=== PATIENT | male | born 1945 | race American Indian/Alaskan Native ===

== ENCOUNTER 2018-03-19 07:47 | Inpatient (IN) | payer MEDICARE ==
[2017-12-04 08:46] VITALS: BMI 23.7
[2018-03-19] MEDS ORDERED: cefTRIAXone IV 1 gm in Dextros 50 ML IVPB ONE (10:55)
[2018-03-19] MEDS ORDERED: Propofol 10 mg/ml Inj (20 ML) ONE (11:04)
[2018-03-19] MEDS ORDERED: Oxycodone/Acetaminophen 5/325 mg Tab PO PRN (12:15)
--- NOTE | 2018-03-19 12:20 | PCM.SURG1 ---
Surgeon's Initial Post Op Note - Surgeon's Notes Surgeon: Belen Stephens Steel Pourer Helper: none Type of Anesthesia: General LMA Pre-Operative Diagnosis: Urinary retention. Prostate cancer Operative Findings: same, bladder calculi Post-Operative Diagnosis: same Operation Performed: cysto, cystolithotripsy,. TURP Specimen/Specimens Removed: stones, prostate Estimated Blood Loss: EBL {In ML}: 100 Blood Products Given: N/A Post-Op Condition: Good Date of Surgery/Procedure: 03/19/18 Time of Surgery/Procedure: 12:10
[2018-03-19] MEDS: HYDROmorphone 0.5 mg/0.5 ml ISec IVP PRN ×3 (12:30→13:05)
[2018-03-19] MEDS ORDERED: HYDROmorphone 0.5 mg/0.5 ml ISec ONE (12:30)
--- NOTE | 2018-03-19 14:29 | CP.PCM.HP ---
History of Present Illness - History of Present Illness History of Present Illness: H&P note for Hospitalist Service. HPI: This is a 73 year old male with PMHx of HTN, severe R hip arthritis, urinary retention, prostate cancer, and DVT R leg (7 years ago). Patient was admitted for monitoring s/p bleeding during same day surgery TURP procedure with Dr. Belen Stephens. The procedure was only partially completed due to concern of blood loss, estimated at 100mL. Of note, patient is Sikh and cannot receive any blood products. Several hours after surgery/ general anesthesia, patient was nauseous and vomited x1, non-bloody. He also states he is slightly tired and feels cold. Denies chest pain, shortness of breath, fever, abdominal pain, dizziness, lightheadedness and any other symptoms. Patient denies hx of coagulopathy, easy bruising, or current use of blood thinners. PMHx: HTN, severe R hip arthritis, urinary retention, prostate cancer, and DVT R leg (7 years ago) PSHx: colon surgery 09/2017 Meds: amlodipine 5mg daily, losartan 100mg daily, tamsulosin 0.4mg BID, Finasteride 5mg daily Allergies: NKDA Family Hx: Mother-cancer; father-Alzeihmer's and CVA Social: Denies tobacco, alcohol and illicit drugs. lives at home with . 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 PMD: Dr. Valencia, : Dr. Belen Stephens Proxy: Bhumika Jin, . H: [phone], C: [phone] NOTE: NO BLOOD PRODUCTS Present on Admission - Present on Admission Any Indicators Present on Admission: Yes History of DVT/PE: Yes History of Uncontrolled Diabetes: No Urinary Catheter: Yes (Hx of urinary retention) Decubitus Ulcer Present: No Review of Systems - Constitutional Constitutional: absent: Excessive Sweating, Fever, Headache, Night Sweats - EENT Eyes: absent: Blind Spots, Blurred Vision, Diplopia, Itchy Eyes - Cardiovascular Cardiovascular: absent: Chest Pain, Claudication, Dyspnea on Exertion, Orthopnea , Palpitations, Rapid Heart Rate - Respiratory Respiratory: absent: Cough, Dyspnea, Hemoptysis, Stridor, Chest Congestion, Change in Mucous Color - Gastrointestinal Gastrointestinal: Nausea, Vomiting. absent: Cramping, Diarrhea, Dyspepsia, Early Satiety, Excessive Flatus, Fecal Incontinence, Hematemesis, Hematochezia, Loose Stools - Genitourinary Genitourinary: Difficulty Urinating. absent: Change in Urinary Stream, Dysuria , Flank Pain, Pyuria, Urinary Urgency - Musculoskeletal Musculoskeletal: absent: Arthralgias, Muscle Weakness, Neck Pain - Neurological Neurological: absent: Abnormal Speech, Dizziness, Numbness, Focal Weakness, Headaches - Hematologic/Lymphatic Hematologic: absent: Easy Bleeding, Easy Bruising Past Patient History - Infectious Disease Hx of Infectious Diseases: None - Tetanus Immunizations Tetanus Immunization: Unknown - Past Medical History & Family History Past Medical History?: Yes - Past Social History Smoking Status: Never Smoked - CARDIAC Hx Hypertension: Yes Hx Peripheral Edema: Yes (Right lower extremity) Other/Comment: DVT right leg 7 YEARS AGO - PULMONARY Hx Respiratory Disorders: No - NEUROLOGICAL Hx Neurological Disorder: No - HEENT Hx HEENT Problems: No - RENAL Hx Chronic Kidney Disease: Yes Hx Kidney Stones: Yes - ENDOCRINE/METABOLIC Hx Endocrine Disorders: No - HEMATOLOGICAL/ONCOLOGICAL Hx Blood Disorders: No - INTEGUMENTARY Hx Dermatological Problems: No - MUSCULOSKELETAL/RHEUMATOLOGICAL Hx Musculoskeletal Disorders: Yes Hx Arthritis: Yes Hx Falls: No Hx Osteoporosis: Yes Hx Unsteady Gait: Yes (Patient uses 2 canes due to r hip pain and leg pain) - GASTROINTESTINAL Hx Gastrointestinal Disorders: Yes (HX COLON RESECTION SEP 2017) Hx Bowel Surgery: Yes - GENITOURINARY/GYNECOLOGICAL Hx Genitourinary Disorders: Yes (HX:PARTIDA TO SGD) Hx Prostate Problems: Yes (Elevated PSA, BPH, slow void) - PSYCHIATRIC Hx Psychophysiologic Disorder: No - SURGICAL HISTORY Hx Surgeries: Yes Other/Comment: CYSTOSCOPY - ANESTHESIA Hx Anesthesia: Yes Hx Anesthesia Reactions: No Hx Malignant Hyperthermia: No Has any member of the family had a problem w/ anesthesia?: No Meds Allergies/Adverse Reactions: Allergies Allergy/AdvReac Type Severity Reaction Status Date / Time No Known Allergies Allergy Verified 09/26/17 10:14 Physical Exam - Constitutional Appears: No Acute Distress - Head Exam Head Exam: ATRAUMATIC, NORMOCEPHALIC - Eye Exam Eye Exam: EOMI, Normal appearance - ENT Exam ENT Exam: Mucous Membranes Moist - Neck Exam Neck exam: Positive for: Full Rom, Normal Inspection - Respiratory Exam Respiratory Exam: Clear to Auscultation Bilateral. absent: Rales, Rhonchi, Wheezes, Respiratory Distress - Cardiovascular Exam Cardiovascular Exam: REGULAR RHYTHM, +S1, +S2. absent: Bradycardia, Tachycardia - GI/Abdominal Exam GI & Abdominal Exam: Normal Bowel Sounds, Soft. absent: Distended, Firm, Guarding, Rebound, Tenderness - Extremities Exam Extremities exam: Negative for: joint swelling, tenderness Additional comments: 1+ pitting edema of the RLE (chronic). - Neurological Exam Neurological exam: Alert, CN II-XII Intact, Oriented x3, Reflexes Normal - Skin Skin Exam: Dry, Intact, Normal Color, Warm Additional comments: long, mycotic toenails noted. Results - Vital Signs Recent Vital Signs: Last Vital Signs Temp 97.6 F 03/19/18 08:09 Pulse 75 03/19/18 08:09 Resp 20 03/19/18 08:09 BP 158/105 H 03/19/18 08:09 Pulse Ox 99 03/19/18 08:09 - Labs Result Diagrams: 03/19/18 21:02 03/19/18 21:02 Assessment & Plan - Assessment and Plan (Free Text) Plan: 73 year old male with PMHx of HTN, severe R hip arthritis, urinary retention, prostate cancer, and DVT R leg (7 years ago) admitted for monitoring s/p bleeding during same day surgery TURP procedure. Blood loss s/p surgery 100mL estimated blood loss 03/18 H/H: 13.7/40 monitor CBC in AM monitor vitals CMP f/u thiamine 100mg PO daily ferrous sulfate 325mg PO daily folic acid 1mg PO daily ascorbic acid 500mg PO daily NO BLOOD PRODUCTS HTN amlodepine 5mg PO daily losartan 100mg PO daily Prostate cancer with urinary retention s/p partial TURP percocet 5/325 1tab Q4H PRN pain as per urology Finasteride 5mg PO daily R Hip Arthritis PT/OT Prophylactic Measures hold chemical VTE therapy due to blood loss SCDs PT/OT - Date & Time Date: 03/19/18 Time: 13:00
[2018-03-19] MEDS: Potassium Ch 20mEq in D5-1/2NS 1,000 ML IV SCH (16:10)
[2018-03-19] MEDS ORDERED: Labetalol 25mg/5ml Syringe IVP STA (16:23)
[2018-03-19] MEDS ORDERED: Labetalol 25mg/5ml Syringe ONE (16:28)
[2018-03-19 21:07] LABS: BASO % 0.3 % (0.0-2.0); EOS % 0.1 % (0.0-4.0); HEMOGLOBIN 13.7 g/dL (12.0-18.0); LYMPH # 0.4 K/uL (1.0-4.3); LYMPH % 4.1 % (20.0-40.0); MEAN CORPUSCULAR HEMOGLOBIN 30.8 pg (27.0-31.0); MEAN CORPUSCULAR HGB CONC 34.3 g/dL (33.0-37.0); MEAN PLATELET VOLUME 9.6 fL (7.2-11.7); MONO # 0.4 K/uL (0.0-0.8); NEUT # 8.5 K/uL (1.8-7.0); NEUT % 91.5 % (50.0-75.0); NRBC % 0.1 % (0.0-2.0); PLATELET COUNT 177 K/uL (130-400); RBC 4.46 Mil/uL (4.40-5.90); RED CELL DISTRIBUTION WIDTH 13.9 % (11.5-14.5)
[2018-03-19 21:10] LABS: MEAN CELL VOLUME 89.5 fL (80.0-94.0); WHITE BLOOD COUNT 9.3 K/uL (4.8-10.8)
[2018-03-19 21:20] LABS: ALB/GLOB RATIO 1.6 (1.0-2.1); ALBUMIN 4.1 g/dL (3.5-5.0); CALCIUM 10.4 mg/dl (8.6-10.4)
[2018-03-19 21:41] LABS: BANDS 2 % (0-2); LYMPHOCYTE 3 % (20-40); MONOCYTE 4 % (0-10); NEUTROPHIL 91 % (50-75); PLATELET ESTIMATE NORMAL (NORMAL); TOTAL CELLS COUNTED 100
[2018-03-20] MEDS: Potassium Ch 20mEq in D5-1/2NS 1,000 ML IV SCH ×4 (01:35→18:55)
[2018-03-20 06:45] LABS: HEMOGLOBIN 12.9 g/dL (12.0-18.0); MEAN CELL VOLUME 89.6 fL (80.0-94.0); MEAN CORPUSCULAR HEMOGLOBIN 31.3 pg (27.0-31.0); MEAN CORPUSCULAR HGB CONC 34.9 g/dL (33.0-37.0); RBC 4.14 Mil/uL (4.40-5.90); RED CELL DISTRIBUTION WIDTH 14.3 % (11.5-14.5); WHITE BLOOD COUNT 9.3 K/uL (4.8-10.8)
[2018-03-20] MEDS ORDERED: Pneumococcal 23-Valent Vaccine IM ONE (10:00)
--- NOTE | 2018-03-20 20:16 | OP ---
PROCEDURE DATE: 03/19/2018 PREOPERATIVE DIAGNOSES: Urinary retention. Prostate carcinoma. POSTOPERATIVE DIAGNOSES: Urinary retention. Prostate carcinoma. Bladder calculi. PROCEDURES: Cystoscopy. Cystolithotripsy and cystolitholapaxy. Transurethral resection of prostate. OPERATING SURGEON: Maxine Stephens MD DESCRIPTION OF PROCEDURE: As follows: The patient received perioperative antibiotics. The patient was placed in a modified lithotomy position. There was restriction of positioning due to the patient's hip disease. General anesthesia was provided by the anesthesiologist. Procedure was performed under video endoscopic control. The genitalia prepped and draped sterilely. The patient had received perioperative antibiotics. A time-out was performed. A 26-Cameroonian continuous flow resectoscope sheath was introduced under direct vision. Urethra, prostate, and bladder were inspected with 30-degree lens. FINDINGS: There was no stricture in the anterior urethra. There was evidence of prostatic urethral obstruction due to lateral lobe hypertrophy, which is asymmetric, involving the right more than left as well as due to middle lobe hypertrophy with an intravesical lobe. There were multiple stones within the bladder. Some of the stones were small enough to remove intact with the rigid grasping forceps. Some of the stones needed to be crusted in order to be removed. The stones were removed with grasping forceps. The resectoscope was then inserted. The prostatic resection was begun at the bladder neck. Thereafter, the lateral lobes were resected beginning anteriorly. Subsequently, the floor and apical prostatic tissue were resected. There was noted to be increased vascularity from the prostate. Hemostasis was achieved during the resection. The prostatic chips were removed using the evacuator. Resectoscope was inserted. There were no residual prostatic chips. There were no residual stones. The hemostasis was complete. The resectoscope and sheath removed. Sr catheter was inserted. Bladder drainage was clear with mild traction applied. Bladder drainage was light pink with mild traction applied. The patient tolerated the procedure without complication. Maxine Stephens MD
--- NOTE | 2018-03-20 23:09 | CP.PCM.PN ---
<Kisha Matamoros P - Last Filed: 03/20/18 23:06> Subjective - Date & Time of Evaluation Date of Evaluation: 03/20/18 Time of Evaluation: 09:00 - Subjective Subjective: PGY-1 note for medicine service. Patient seen and evaluated at bedside. Patient is resting in bed comfortably, in no acute distress. He is very pleasant to speak with. He denies fever, chills , lightheadedness, dizziness, chest pain, shortness of breath and any other symptoms. 550cc of clear yellow urine noted to urine collection bag. Objective - Vital Signs/Intake and Output Vital Signs (last 24 hours): Temp Pulse Resp BP Pulse Ox 99.4 F 80 20 156/87 H 98 03/20/18 18:00 03/20/18 18:00 03/20/18 18:00 03/20/18 18:00 03/20/18 18:00 Intake and Output: 03/20/18 03/21/18 18:59 06:59 Intake Total 81250 4400 Output Total 69195 1000 Balance -1290 3400 - Medications Medications: Current Medications Amlodipine Besylate (Norvasc) 5 mg PO DAILY [facility] Last Admin: 03/20/18 10:00 Dose: 5 mg Ascorbic Acid (Vitamin C 500 Mg Tab) 500 mg PO DAILY [facility] Last Admin: 03/20/18 10:00 Dose: 500 mg Docusate Sodium (Colace) 100 mg PO TID [facility] Last Admin: 03/20/18 17:47 Dose: 100 mg Ferrous Sulfate (Feosol) 325 mg PO DAILY [facility] Last Admin: 03/20/18 10:00 Dose: 325 mg Finasteride (Proscar) 5 mg PO DAILY [facility] Last Admin: 03/20/18 10:00 Dose: 5 mg Folic Acid (Folic Acid) 1 mg PO DAILY [facility] Last Admin: 03/20/18 10:00 Dose: 1 mg Potassium Chloride/Dextrose/Sod Cl (Potassium Chl 20 Meq In D5-1/2ns) 1,000 mls @ 75 mls/hr IV .[id number] [facility] Last Admin: 03/20/18 18:55 Dose: 75 mls/hr Losartan Potassium (Cozaar) 100 mg PO DAILY [facility] Last Admin: 03/20/18 10:00 Dose: 100 mg Oxycodone/Acetaminophen (Percocet 5/325 Mg Tab) 1 tab PO Q4H PRN PRN Reason: Pain, moderate (4-7) Stop: 03/22/18 12:16 Last Admin: 03/19/18 15:58 Dose: 1 tab Thiamine HCl (Vitamin B1 Tab) 100 mg PO DAILY [facility] Last Admin: 03/20/18 10:00 Dose: 100 mg - Labs Labs: 03/20/18 06:38 03/20/18 06:38 - Constitutional Appears: Well, No Acute Distress - Head Exam Head Exam: ATRAUMATIC, NORMAL INSPECTION, NORMOCEPHALIC - Eye Exam Eye Exam: EOMI, Normal appearance - ENT Exam ENT Exam: Mucous Membranes Moist - Neck Exam Neck Exam: Full ROM, Normal Inspection - Respiratory Exam Respiratory Exam: Clear to Ausculation Bilateral, NORMAL BREATHING PATTERN. absent: Rales, Rhonchi, Wheezes - Cardiovascular Exam Cardiovascular Exam: REGULAR RHYTHM, +S1, +S2 - GI/Abdominal Exam GI & Abdominal Exam: Soft, Normal Bowel Sounds. absent: Distended, Firm, Guarding, Rigid, Tenderness - Exam Additional comments: Patient with michel catheter. Clear yellow urine noted to bag, 550 cc. - Neurological Exam Neurological Exam: Alert, Awake, CN II-XII Intact, Oriented x3 - Psychiatric Exam Psychiatric exam: Normal Affect, Normal Mood - Skin Skin Exam: Dry, Normal Color, Warm Assessment and Plan - Assessment and Plan (Free Text) Plan: Blood loss s/p surgery 100mL estimated blood loss 03/19 H/H: 13.7/40 7/24 H/H: 12.9/37.1 monitor vitals thiamine 100mg PO daily ferrous sulfate 325mg PO daily folic acid 1mg PO daily ascorbic acid 500mg PO daily NO BLOOD PRODUCTS HTN amlodepine 5mg PO daily losartan 100mg PO daily Prostate cancer with urinary retention s/p partial TURP percocet 5/325 1tab Q4H PRN pain as per urology Finasteride 5mg PO daily R Hip Arthritis PT/OT Prophylactic Measures hold chemical VTE therapy due to blood loss SCDs PT/OT Hemoglobin is stable, patient is asymptomatic. Disposition as per Dr. Stephens. <Willian Das H - Last Filed: 03/21/18 08:17> Objective - Vital Signs/Intake and Output Vital Signs (last 24 hours): Temp Pulse Resp BP Pulse Ox 98.5 F 87 16 152/99 H 98 03/20/18 23:48 03/20/18 23:48 03/20/18 23:48 03/20/18 23:48 03/20/18 23:48 Intake and Output: 03/21/18 03/21/18 06:59 18:59 Intake Total 4400 3720 Output Total 1000 4800 Balance 3400 -1080 - Medications Medications: Current Medications Amlodipine Besylate (Norvasc) 5 mg PO DAILY [facility] Last Admin: 03/20/18 10:00 Dose: 5 mg Ascorbic Acid (Vitamin C 500 Mg Tab) 500 mg PO DAILY [facility] Last Admin: 03/20/18 10:00 Dose: 500 mg Docusate Sodium (Colace) 100 mg PO TID [facility] Last Admin: 03/20/18 17:47 Dose: 100 mg Ferrous Sulfate (Feosol) 325 mg PO DAILY [facility] Last Admin: 03/20/18 10:00 Dose: 325 mg Finasteride (Proscar) 5 mg PO DAILY [facility] Last Admin: 03/20/18 10:00 Dose: 5 mg Folic Acid (Folic Acid) 1 mg PO DAILY [facility] Last Admin: 03/20/18 10:00 Dose: 1 mg Potassium Chloride/Dextrose/Sod Cl (Potassium Chl 20 Meq In D5-1/2ns) 1,000 mls @ 75 mls/hr IV .[id number] [facility] Last Admin: 03/21/18 04:15 Dose: Not Given Losartan Potassium (Cozaar) 100 mg PO DAILY [facility] Last Admin: 03/20/18 10:00 Dose: 100 mg Oxycodone/Acetaminophen (Percocet 5/325 Mg Tab) 1 tab PO Q4H PRN PRN Reason: Pain, moderate (4-7) Stop: 03/22/18 12:16 Last Admin: 03/19/18 15:58 Dose: 1 tab Thiamine HCl (Vitamin B1 Tab) 100 mg PO DAILY [facility] Last Admin: 03/20/18 10:00 Dose: 100 mg - Labs Labs: 03/21/18 06:33 03/21/18 06:33 Attending/Attestation - Attestation I have personally seen and examined this patient.: Yes I have fully participated in the care of the patient.: Yes I have reviewed all pertinent clinical information, including history, physical exam and plan: Yes Notes (Text): 03/21/18 08:08 Medical attending: Patient was seen and examined by me. Agree with the above note by the resident. The patient was not in any acute distress or pain. He reported no acute events overnight. The urine was yellow, clear. As mentioned above the patient Hgb is stable, he is status post surgery. Willian Das
[2018-03-21] MEDS: Potassium Ch 20mEq in D5-1/2NS 1,000 ML IV SCH ×2 (04:15→17:19)
[2018-03-21 06:44] LABS: BASO # 0.1 K/uL (0.0-0.2); BASO % 0.5 % (0.0-2.0); EOS # 0.1 K/uL (0.0-0.7); EOS % 0.5 % (0.0-4.0); HEMOGLOBIN 13.4 g/dL (12.0-18.0); LYMPH # 0.9 K/uL (1.0-4.3); LYMPH % 8.3 % (20.0-40.0); MEAN CELL VOLUME 90.9 fL (80.0-94.0); MEAN CORPUSCULAR HGB CONC 34.1 g/dL (33.0-37.0); MEAN PLATELET VOLUME 10.2 fL (7.2-11.7); MONO # 1.3 K/uL (0.0-0.8); MONO % 12.7 % (0.0-10.0); NEUT # 8.2 K/uL (1.8-7.0); PLATELET COUNT 154 K/uL (130-400); RBC 4.32 Mil/uL (4.40-5.90); RED CELL DISTRIBUTION WIDTH 14.2 % (11.5-14.5); WHITE BLOOD COUNT 10.5 K/uL (4.8-10.8)
[2018-03-21 07:24] LABS: ALB/GLOB RATIO 1.4 (1.0-2.1); ALBUMIN 3.5 g/dL (3.5-5.0); CALCIUM 9.8 mg/dl (8.6-10.4)
[2018-03-21 08:35] LABS: EOSINOPHIL 1 % (0-4); LYMPHOCYTE 10 % (20-40); MONOCYTE 14 % (0-10); NEUTROPHIL 75 % (50-75); PLATELET ESTIMATE NORMAL (NORMAL); TOTAL CELLS COUNTED 100
[2018-03-21 08:38] VITALS: RESP 20
--- NOTE | 2018-03-21 09:31 | CP.PCM.PN ---
<Kisha Matamoros P - Last Filed: 03/21/18 20:19> Subjective - Date & Time of Evaluation Date of Evaluation: 03/21/18 Time of Evaluation: 09:31 - Subjective Subjective: PGY-1 note for medicine service. Patient seen and evaluated at bedside. Patient is in no acute distress. Says he feels "wonderful" and would like to go home. He denies fever, chills, lightheadedness, dizziness, abdominal pain nausea, vomiting, chest pain, shortness of breath and any other symptoms. Objective - Vital Signs/Intake and Output Vital Signs (last 24 hours): Temp Pulse Resp BP Pulse Ox 98.7 F 80 20 182/77 H 97 03/21/18 08:00 03/21/18 08:00 03/21/18 08:00 03/21/18 08:00 03/21/18 08:00 Intake and Output: 03/21/18 03/21/18 06:59 18:59 Intake Total 4400 3720 Output Total 1000 4800 Balance 3400 -1080 - Medications Medications: Current Medications Amlodipine Besylate (Norvasc) 5 mg PO DAILY [facility] Last Admin: 03/20/18 10:00 Dose: 5 mg Ascorbic Acid (Vitamin C 500 Mg Tab) 500 mg PO DAILY [facility] Last Admin: 03/20/18 10:00 Dose: 500 mg Ciprofloxacin (Cipro) 250 mg PO BID [facility] PRN Reason: Protocol Docusate Sodium (Colace) 100 mg PO TID [facility] Last Admin: 03/20/18 17:47 Dose: 100 mg Ferrous Sulfate (Feosol) 325 mg PO DAILY [facility] Last Admin: 03/20/18 10:00 Dose: 325 mg Finasteride (Proscar) 5 mg PO DAILY [facility] Last Admin: 03/20/18 10:00 Dose: 5 mg Folic Acid (Folic Acid) 1 mg PO DAILY [facility] Last Admin: 03/20/18 10:00 Dose: 1 mg Potassium Chloride/Dextrose/Sod Cl (Potassium Chl 20 Meq In D5-1/2ns) 1,000 mls @ 75 mls/hr IV .[id number] [facility] Last Admin: 03/21/18 04:15 Dose: Not Given Losartan Potassium (Cozaar) 100 mg PO DAILY [facility] Last Admin: 03/20/18 10:00 Dose: 100 mg Oxycodone/Acetaminophen (Percocet 5/325 Mg Tab) 1 tab PO Q4H PRN PRN Reason: Pain, moderate (4-7) Stop: 03/22/18 12:16 Last Admin: 03/19/18 15:58 Dose: 1 tab Thiamine HCl (Vitamin B1 Tab) 100 mg PO DAILY [facility] Last Admin: 03/20/18 10:00 Dose: 100 mg - Labs Labs: 03/21/18 06:33 03/21/18 06:33 - Constitutional Appears: Well, No Acute Distress - Head Exam Head Exam: ATRAUMATIC, NORMOCEPHALIC - Eye Exam Eye Exam: EOMI, Normal appearance - ENT Exam ENT Exam: Mucous Membranes Moist - Neck Exam Neck Exam: Full ROM, Normal Inspection - Respiratory Exam Respiratory Exam: Clear to Ausculation Bilateral, NORMAL BREATHING PATTERN. absent: Rales, Rhonchi, Wheezes - Cardiovascular Exam Cardiovascular Exam: REGULAR RHYTHM, +S1, +S2 - GI/Abdominal Exam GI & Abdominal Exam: Soft, Normal Bowel Sounds. absent: Firm, Guarding, Rigid, Tenderness - Exam Additional comments: Michel catheter in place, christianne urine noted to tubing. - Extremities Exam Extremities Exam: absent: Tenderness Additional comments: There is some mild swelling to RLE, improved since yesterday. - Neurological Exam Neurological Exam: Alert, Awake, CN II-XII Intact, Oriented x3 - Psychiatric Exam Psychiatric exam: Normal Affect, Normal Mood - Skin Skin Exam: Dry, Normal Color, Warm Assessment and Plan - Assessment and Plan (Free Text) Plan: Blood loss s/p surgery 100mL estimated blood loss 03/19 H/H: 13.7/40 03/20 H/H: 12.9/37.1 03/21 H/H monitor vitals thiamine 100mg PO daily ferrous sulfate 325mg PO daily folic acid 1mg PO daily ascorbic acid 500mg PO daily NO BLOOD PRODUCTS UTI Urine culture- grew E.faecalis sensitive to cipro. Cipro 500mg PO BID (started 03/21) HTN amlodepine 5mg PO daily losartan 100mg PO daily Prostate cancer with urinary retention s/p partial TURP percocet 5/325 1tab Q4H PRN pain as per urology Finasteride 5mg PO daily R Hip Arthritis PT/OT Prophylactic Measures hold chemical VTE therapy due to blood loss SCDs PT/OT Pt is going for Bone scan today and may be discharged tomorrow as per Dr. Stephens. Dr. Stephens wrote the necessary scripts (can be found in chart). Patient will follow-up with Dr. Stephens in one week to have michel removed. <Willian Das H - Last Filed: 03/22/18 07:22> Objective - Vital Signs/Intake and Output Vital Signs (last 24 hours): Temp Pulse Resp BP Pulse Ox 99 F 80 20 154/82 H 100 03/21/18 23:37 03/21/18 23:37 03/21/18 23:37 03/21/18 23:37 03/21/18 23:37 Intake and Output: 03/22/18 03/22/18 06:59 18:59 Intake Total 1340 Output Total 500 Balance 840 - Medications Medications: Current Medications Amlodipine Besylate (Norvasc) 5 mg PO DAILY [facility] Last Admin: 03/21/18 10:23 Dose: 5 mg Ascorbic Acid (Vitamin C 500 Mg Tab) 500 mg PO DAILY [facility] Last Admin: 03/21/18 10:22 Dose: 500 mg Ciprofloxacin (Cipro) 500 mg PO BID [facility] PRN Reason: Protocol Last Admin: 03/21/18 23:11 Dose: 500 mg Docusate Sodium (Colace) 100 mg PO TID [facility] Last Admin: 03/21/18 17:18 Dose: 100 mg Ferrous Sulfate (Feosol) 325 mg PO DAILY [facility] Last Admin: 03/21/18 10:23 Dose: 325 mg Finasteride (Proscar) 5 mg PO DAILY [facility] Last Admin: 03/21/18 11:12 Dose: 5 mg Folic Acid (Folic Acid) 1 mg PO DAILY [facility] Last Admin: 03/21/18 10:23 Dose: 1 mg Potassium Chloride/Dextrose/Sod Cl (Potassium Chl 20 Meq In D5-1/2ns) 1,000 mls @ 75 mls/hr IV .[id number] [facility] Last Admin: 03/22/18 07:03 Dose: 75 mls/hr Losartan Potassium (Cozaar) 100 mg PO DAILY [facility] Last Admin: 03/21/18 10:22 Dose: 100 mg Oxycodone/Acetaminophen (Percocet 5/325 Mg Tab) 1 tab PO Q4H PRN PRN Reason: Pain, moderate (4-7) Stop: 03/22/18 12:16 Last Admin: 03/19/18 15:58 Dose: 1 tab Thiamine HCl (Vitamin B1 Tab) 100 mg PO DAILY [facility] Last Admin: 03/21/18 10:23 Dose: 100 mg - Labs Labs: 03/22/18 06:25 03/22/18 06:25 Attending/Attestation - Attestation I have personally seen and examined this patient.: Yes I have fully participated in the care of the patient.: Yes I have reviewed all pertinent clinical information, including history, physical exam and plan: Yes Notes (Text): 03/22/18 07:22 Medical attending: Patient was seen and examined by me, agree with the above note by the medical device sales. The patient was not under any acute distress he denied having any pain. His hemoglobins have been stable at this time. The patient explained that he felt well enough to go home relatively soon. Thank you very much, Willian Das
--- NOTE | 2018-03-21 14:13 | PCM.URO ---
Urology Progress Note - General General: No Complaints, Tolerating Diet - Subjective Abdominal Pain: No Flank Pain: No Nausea: No Vomiting: No Dysuria: No Hematuria: Yes (mild, clears promptly with irrigation) Dsypnea: No Chest Pain: No Fever & Chills: No - Objective Lab Studies: Reviewed (hct=39 creat=1.6) Lab Results Last 24 Hours: Laboratory Results - last 24 hr 03/20/18 03/21/18 03/21/18 11:16 06:33 06:33 WBC 10.5 RBC 4.32 L Hgb 13.4 Hct 39.3 MCV 90.9 MCH 31.0 MCHC 34.1 RDW 14.2 Plt Count 154 MPV 10.2 Neut % (Auto) 78.0 H Lymph % (Auto) 8.3 L [place] % (Auto) 12.7 H Eos % (Auto) 0.5 Baso % (Auto) 0.5 Neut # (Auto) 8.2 H Lymph # (Auto) 0.9 L [place] # (Auto) 1.3 H Eos # (Auto) 0.1 Baso # (Auto) 0.1 Neutrophils % (Manual) 75 Lymphocytes % (Manual) 10 L Monocytes % (Manual) 14 H Eosinophils % (Manual) 1 Platelet Estimate Normal Sodium 141 Potassium 4.1 Chloride 108 H Carbon Dioxide 23 Anion Gap 15 BUN 17 Creatinine 1.6 H Est GFR ( Amer) 52 Est GFR (Non-Af Amer) 43 POC Glucose (mg/dL) 121 H Random Glucose 99 Calcium 9.8 Total Bilirubin 1.0 AST 26 ALT 35 Alkaline Phosphatase 69 Total Protein 6.0 L Albumin 3.5 Globulin 2.5 Albumin/Globulin Ratio 1.4 Intake & Output: Intake & Output 03/20/18 03/21/18 03/21/18 18:59 06:59 18:59 Intake Total 18376 4400 3720 Output Total 65230 1000 4800 Balance -1290 3400 -1080 Intake: Intake, IV Amount 1840 600 600 Left Hand 1840 600 600 Oral 540 300 120 Other 8255 3500 3000 Output: Urine 44357 [address] Urethral 2185 1000 900 Other: # Bowel Movements 0 0 Vital Signs: Vital Signs - 24 hr 03/20/18 03/20/18 03/21/18 18:00 23:48 08:00 Temperature 99.4 F 98.5 F 98.7 F Pulse Rate 80 87 80 Respiratory 20 16 20 Rate Blood Pressure 156/87 H 152/99 H 182/77 H O2 Sat by Pulse 98 98 97 Oximetry - Physical Exam Abdominal Exam: Soft, Non-Tender, Non-Distended Back: No CVA Tenderness Genitalia: Without Inflammation Urinary Catheter Draining Well: Yes Urine Color: Dark [place] Extremities: Normal: Bilateral - Male Phallus: Normal Scrotum: Normal Testes: Normal: Bilateral - Plan Catheter Care: Yes Ambulation - Out of Bed: Yes Discontinue Intravenous Fluids: Yes Intake & Output: Yes Additional Information: on cipro for uti. michel to leg bag. bone scan. path- pending. discussed w pt. Discussed w medical and nursing staff - Date & Time of Note Date: 03/21/18 Time: 14:13
[2018-03-21 23:44] VITALS: O2SAT 100
[2018-03-22 06:35] LABS: BASO # 0.1 K/uL (0.0-0.2); BASO % 0.7 % (0.0-2.0); EOS # 0.2 K/uL (0.0-0.7); EOS % 1.9 % (0.0-4.0); HEMOGLOBIN 13.1 g/dL (12.0-18.0); LYMPH # 1.1 K/uL (1.0-4.3); LYMPH % 13.6 % (20.0-40.0); MEAN CELL VOLUME 91.2 fL (80.0-94.0); MEAN CORPUSCULAR HEMOGLOBIN 31.2 pg (27.0-31.0); MEAN CORPUSCULAR HGB CONC 34.2 g/dL (33.0-37.0); MEAN PLATELET VOLUME 10.3 fL (7.2-11.7); NEUT # 5.9 K/uL (1.8-7.0); NEUT % 71.8 % (50.0-75.0); RBC 4.21 Mil/uL (4.40-5.90); RED CELL DISTRIBUTION WIDTH 14.2 % (11.5-14.5); WHITE BLOOD COUNT 8.2 K/uL (4.8-10.8)
[2018-03-22 06:51] LABS: ALB/GLOB RATIO 1.4 (1.0-2.1); ALBUMIN 3.4 g/dL (3.5-5.0); CALCIUM 9.4 mg/dl (8.6-10.4)
[2018-03-22] MEDS: Potassium Ch 20mEq in D5-1/2NS 1,000 ML IV SCH (07:03)
[2018-03-22 08:23] VITALS: BP 137/87; PULSE 66; TEMP 98.7
--- NOTE | 2018-03-22 11:32 | CP.PCM.DIS ---
<Daniel Lema - Last Filed: 03/22/18 13:12> Provider - Provider Date of Admission: 03/19/18 12:19 Attending physician: Willian Das DO Time Spent in preparation of Discharge (in minutes): 45 Hospital Course - Lab Results Lab Results: Micro Results 03/19/18 12:11 Urine,Catheterized Urine Culture - Final Enterococcus Faecalis Most Recent Lab Values WBC 8.2 K/uL (4.8-10.8) 03/22/18 06:25 RBC 4.21 Mil/uL (4.40-5.90) L 03/22/18 06:25 Hgb 13.1 g/dL (12.0-18.0) 03/22/18 06:25 Hct 38.3 % (35.0-51.0) 03/22/18 06:25 MCV 91.2 fL (80.0-94.0) 03/22/18 06:25 MCH 31.2 pg (27.0-31.0) H 03/22/18 06:25 MCHC 34.2 g/dL (33.0-37.0) 03/22/18 06:25 RDW 14.2 % (11.5-14.5) 03/22/18 06:25 Plt Count 154 K/uL (130-400) 03/22/18 06:25 MPV 10.3 fL (7.2-11.7) 03/22/18 06:25 Neut % (Auto) 71.8 % (50.0-75.0) 03/22/18 06:25 Lymph % (Auto) 13.6 % (20.0-40.0) L 03/22/18 06:25 Wharton % (Auto) 12.0 % (0.0-10.0) H 03/22/18 06:25 Eos % (Auto) 1.9 % (0.0-4.0) 03/22/18 06:25 Baso % (Auto) 0.7 % (0.0-2.0) 03/22/18 06:25 Neut # (Auto) 5.9 K/uL (1.8-7.0) 03/22/18 06:25 Lymph # (Auto) 1.1 K/uL (1.0-4.3) 03/22/18 06:25 Wharton # (Auto) 1.0 K/uL (0.0-0.8) H 03/22/18 06:25 Eos # (Auto) 0.2 K/uL (0.0-0.7) 03/22/18 06:25 Baso # (Auto) 0.1 K/uL (0.0-0.2) 03/22/18 06:25 Neutrophils % (Manual) 75 % (50-75) 03/21/18 06:33 Band Neutrophils % 2 % (0-2) 03/19/18 21:02 Lymphocytes % (Manual) 10 % (20-40) L 03/21/18 06:33 Monocytes % (Manual) 14 % (0-10) H 03/21/18 06:33 Eosinophils % (Manual) 1 % (0-4) 03/21/18 06:33 Platelet Estimate Normal (NORMAL) 03/21/18 06:33 Sodium 140 mmol/L (132-148) 03/22/18 06:25 Potassium 4.0 mmol/L (3.6-5.2) 03/22/18 06:25 Chloride 105 mmol/L (98-107) 03/22/18 06:25 Carbon Dioxide 24 mmol/L (22-30) 03/22/18 06:25 Anion Gap 16 (10-20) 03/22/18 06:25 BUN 19 mg/dL (9-20) 03/22/18 06:25 Creatinine 1.5 mg/dL (0.8-1.5) 03/22/18 06:25 Est GFR ( Amer) 56 03/22/18 06:25 Est GFR (Non-Af Amer) 46 03/22/18 06:25 POC Glucose (mg/dL) 121 mg/dL (65-110) H 03/20/18 11:16 Random Glucose 90 mg/dL (75-110) 03/22/18 06:25 Calcium 9.4 mg/dl (8.6-10.4) 03/22/18 06:25 Total Bilirubin 0.9 mg/dL (0.2-1.3) 03/22/18 06:25 AST 24 U/L (17-59) 03/22/18 06:25 ALT 46 U/L (21-72) 03/22/18 06:25 Alkaline Phosphatase 55 U/L (38-126) 03/22/18 06:25 Total Protein 5.9 g/dL (6.3-8.3) L 03/22/18 06:25 Albumin 3.4 g/dL (3.5-5.0) L 03/22/18 06:25 Globulin 2.4 gm/dL (2.2-3.9) 03/22/18 06:25 Albumin/Globulin Ratio 1.4 (1.0-2.1) 03/22/18 06:25 - Hospital Course Hospital Course: This is a 73 year old male with PMHx of HTN, severe R hip arthritis, urinary retention, prostate cancer, and DVT R leg (7 years ago). Patient was admitted for monitoring s/p bleeding during same day surgery TURP procedure with Dr. Belen Stephens. The procedure was partially completed due to concern of blood loss, estimated at 100mL. Of note, patient is [employer] and cannot receive any blood products. Several hours after surgery/ general anesthesia, patient was nauseous and vomited x1, non-bloody. He also states he is slightly tired and feels cold. Denies chest pain, shortness of breath, fever, abdominal pain, dizziness, lightheadedness and any other symptoms. Patient denies hx of coagulopathy, easy bruising, or current use of blood thinners. Patient was admitted for monitoring following 100mL blood loss during surgery. Pt's hemoglobin was checked daily and remained stable throughout his stay. A urine culture was obtained, which grew E. faecalis sensitive to cipro. Patient was started on Ciprofloxacin 500mg BID on 03/21/18. A bone scan was ordered to assess any metastatic disease. Bone scan results showed activity within the hips bilaterally and sacrum, uptake could mean osteoarthritis, however underlying lesions cannot be excluded. CT scan of pelvis is recommended. Patient refused CT scan of pelvis during hospitalization. Patient was given a prescription for a walker. Patient refused the prescription for walker, stating he will continue using canes. Patient is stable for discharge to home per Dr. Stephens. Patient is discharged with the following prescriptions: 1. Levaquin 500mg, one tablet a day per mouth for 7 days 2. Colace, one tablet per mouth three times a day Patient is to follow up with Dr. Stephens in office within one week to have michel catheter removed. Patient is to return to Emergency Room if there are any new or worsening symptoms. - Date & Time of H&P Date of H&P: 03/22/18 Time of H&P: 09:15 Discharge Exam - Head Exam Head Exam: ATRAUMATIC, NORMAL INSPECTION, NORMOCEPHALIC - Eye Exam Eye Exam: EOMI, Normal appearance - ENT Exam ENT Exam: Mucous Membranes Dry - Neck Exam Neck exam: Full Rom, Normal Inspection - Respiratory Exam Respiratory Exam: Clear to PA & Lateral, NORMAL BREATHING PATTERN, UNREMARKABLE - Cardiovascular Exam Cardiovascular Exam: REGULAR RHYTHM, +S1, +S2 - GI/Abdominal Exam GI & Abdominal Exam: Normal Bowel Sounds, Unremarkable. absent: Distended, Tenderness - Extremities Exam Extremities exam: full ROM, normal inspection - Neurological Exam Neurological exam: Alert, Oriented x3 - Psychiatric Exam Psychiatric exam: Normal Affect, Normal Mood - Skin Skin Exam: Intact, Normal Color, Warm Discharge Plan - Discharge Medications Prescriptions: Docusate [Colace] 100 mg PO TID #100 cap levoFLOXacin [Levaquin] 500 mg PO DAILY 7 Days #7 tab - Follow Up Plan Condition: GOOD Disposition: HOME/ ROUTINE Instructions: Transurethral Resection of the Prostate (DC), Cystoscopy (DC) Additional Instructions: Patient is stable to discharge home as per Dr Willian Das and Dr Maxine Stephens. Patient will be discharged with leg bag placed. Empty leg bag as needed Patient is to follow up with Dr Stephens within 10 days. Patient will take the following medications: Levaquin 500mg, one tablet a day per mouth for 7 days and Colace, one tablet per mouth three times a day. If any concerning symptoms worsen or return, please return to the ER. Referrals: Maxine Stephens MD [Staff Provider] - <Willian Das - Last Filed: 03/22/18 15:50> Provider - Provider Date of Admission: 03/19/18 12:19 Attending physician: Willian Das, DO Hospital Course - Lab Results Lab Results: Micro Results 03/19/18 12:11 Urine,Catheterized Urine Culture - Final Enterococcus Faecalis Most Recent Lab Values WBC 8.2 K/uL (4.8-10.8) 03/22/18 06:25 RBC 4.21 Mil/uL (4.40-5.90) L 03/22/18 06:25 Hgb 13.1 g/dL (12.0-18.0) 03/22/18 06:25 Hct 38.3 % (35.0-51.0) 03/22/18 06:25 MCV 91.2 fL (80.0-94.0) 03/22/18 06:25 MCH 31.2 pg (27.0-31.0) H 03/22/18 06:25 MCHC 34.2 g/dL (33.0-37.0) 03/22/18 06:25 RDW 14.2 % (11.5-14.5) 03/22/18 06:25 Plt Count 154 K/uL (130-400) 03/22/18 06:25 MPV 10.3 fL (7.2-11.7) 03/22/18 06:25 Neut % (Auto) 71.8 % (50.0-75.0) 03/22/18 06:25 Lymph % (Auto) 13.6 % (20.0-40.0) L 03/22/18 06:25 Wharton % (Auto) 12.0 % (0.0-10.0) H 03/22/18 06:25 Eos % (Auto) 1.9 % (0.0-4.0) 03/22/18 06:25 Baso % (Auto) 0.7 % (0.0-2.0) 03/22/18 06:25 Neut # (Auto) 5.9 K/uL (1.8-7.0) 03/22/18 06:25 Lymph # (Auto) 1.1 K/uL (1.0-4.3) 03/22/18 06:25 Wharton # (Auto) 1.0 K/uL (0.0-0.8) H 03/22/18 06:25 Eos # (Auto) 0.2 K/uL (0.0-0.7) 03/22/18 06:25 Baso # (Auto) 0.1 K/uL (0.0-0.2) 03/22/18 06:25 Neutrophils % (Manual) 75 % (50-75) 03/21/18 06:33 Band Neutrophils % 2 % (0-2) 03/19/18 21:02 Lymphocytes % (Manual) 10 % (20-40) L 03/21/18 06:33 Monocytes % (Manual) 14 % (0-10) H 03/21/18 06:33 Eosinophils % (Manual) 1 % (0-4) 03/21/18 06:33 Platelet Estimate Normal (NORMAL) 03/21/18 06:33 Sodium 140 mmol/L (132-148) 03/22/18 06:25 Potassium 4.0 mmol/L (3.6-5.2) 03/22/18 06:25 Chloride 105 mmol/L (98-107) 03/22/18 06:25 Carbon Dioxide 24 mmol/L (22-30) 03/22/18 06:25 Anion Gap 16 (10-20) 03/22/18 06:25 BUN 19 mg/dL (9-20) 03/22/18 06:25 Creatinine 1.5 mg/dL (0.8-1.5) 03/22/18 06:25 Est GFR ( Amer) 56 03/22/18 06:25 Est GFR (Non-Af Amer) 46 03/22/18 06:25 POC Glucose (mg/dL) 121 mg/dL (65-110) H 03/20/18 11:16 Random Glucose 90 mg/dL (75-110) 03/22/18 06:25 Calcium 9.4 mg/dl (8.6-10.4) 03/22/18 06:25 Total Bilirubin 0.9 mg/dL (0.2-1.3) 03/22/18 06:25 AST 24 U/L (17-59) 03/22/18 06:25 ALT 46 U/L (21-72) 03/22/18 06:25 Alkaline Phosphatase 55 U/L (38-126) 03/22/18 06:25 Total Protein 5.9 g/dL (6.3-8.3) L 03/22/18 06:25 Albumin 3.4 g/dL (3.5-5.0) L 03/22/18 06:25 Globulin 2.4 gm/dL (2.2-3.9) 03/22/18 06:25 Albumin/Globulin Ratio 1.4 (1.0-2.1) 03/22/18 06:25 Attending/Attestation - Attestation I have personally seen and examined this patient.: Yes I have fully participated in the care of the patient.: Yes I have reviewed all pertinent clinical information, including history, physical exam and plan: Yes Notes (Text): 03/22/18 15:45 Medical attending: Patient was seen and examined by me. Agree with the above note by the resident The patient was not in any acute distress. He udnerwent a bone scan yesterday and the finalized report was negative for metastatic disease. He did not want any walking assisted device or cane as he had his own at bedside that he has been using fine he says for past several years There were already scripts in the chart for Levaquin as well as colace. He understands he needs to follow up with urology He was also given a basin as well as a urinal for his convience as he says that sometimes he cannot empy the michel bag quickly when in bed. thank you Willian Das
--- NOTE | 2018-03-22 13:36 | NM ---
Date of service: 03/21/2018 PROCEDURE: Whole Body Bone Scan HISTORY: Urinary retention. Relevant medical history: Prostate cancer. COMPARISON: None available. TECHNIQUE: Following administration of 23.5. MiCu of Tc MDP multiplanar whole body images were obtained. FINDINGS: Evidence for bony metastatic disease: None. Degenerative uptake: Both hips right greater than left. Physiologic uptake: There appears be a component of obstructive uropathy bilaterally left greater than right. A Sr catheter identified in a decompressed bladder. Other findings: None. IMPRESSION: No evidence of bony metastatic disease. Degenerative changes identified in both hips right greater than left. Concordant results (preliminary interpretation) provided by [facility]. Procedure Completed: 19:20 Preliminary ([facility]) Report: Dictated and Authenticated: 20:13. Final Interpretation: 13:34 March 22, 2018.
== END 2018-03-22 13:05 | disposition home or self-care (01) | DRG 713 ==
LOC: C.SDS 07:47 → C.9S 12:19 → C.3T 20:21
PROVIDERS: ADMIT Hospitalist; ATTEND Hospitalist
PROC: 0VT08ZZ Resection of Prostate, Via Natural or Artificial Opening Endoscopic (ICD-10-PCS; principal; 2018-03-19 09:30)
PROC: 0TCB8ZZ Extirpation of Matter from Bladder, Via Natural or Artificial Opening Endoscopic (ICD-10-PCS; 2018-03-19 09:30)
DX: C61 Malignant neoplasm of prostate (principal); N21.0 Calculus in bladder; R33.8 Other retention of urine; N39.0 Urinary tract infection, site not specified; N36.8 Other specified disorders of urethra; M16.11 Unilateral primary osteoarthritis, right hip; M81.0 Age-related osteoporosis without current pathological fracture; I12.9 Hypertensive chronic kidney disease with stage 1 through stage 4 chronic kidney disease, or unspecified chronic kidney disease; N18.9 Chronic kidney disease, unspecified; Z53.20 Procedure and treatment not carried out because of patient's decision for unspecified reasons; B96.89 Other specified bacterial agents as the cause of diseases classified elsewhere